=== PATIENT | male | born 1940 | race Caucasian/White ===

== ENCOUNTER 2017-07-03 20:04 | Emergency (ER) | payer MEDICARE, OTHER ==
--- NOTE | 2017-07-04 14:41 | ER ---
DATE SEEN: 07/03/2017 HISTORY OF PRESENT ILLNESS: On 07/04/2017, a telephone call was placed to the patient to determine how he is doing. He is feeling well. He noted that after he got home, he had more left knee discomfort. He has mild swelling. He did not comment that "I didn't know I had knee discomfort when I was in the hospital, it wasn't bothering me in the hospital." I encouraged him to have this followed this week and may need x-ray. The patient has elevated INR. He left before he was informed of his results. He was informed of that this morning. The plan is to have him hold his warfarin dose at least for 24 hours and followup. He is going to get his INR rechecked tomorrow. This will be modulated and followed by the clinic. I also said that because his INR is elevated, he has increased risk of swelling and bleed into his joint and/or joint surfaces or soft tissues, so this will need to be followed. They can use cold packs on his knee to diminish the swelling if he has extensive swelling. He states that he has mild swelling, it is not extensive, and it is not black and blue. /[id number] SAM/GIOVANNA
--- NOTE | 2017-07-05 09:39 | ER ---
DATE SEEN: 07/03/2017 EKG REPORT: Atrial fibrillation, heart rate 61 with intermittent atrial flutter. /[id number] SAM/GIOVANNA
--- NOTE | 2017-07-05 14:43 | ER ---
DATE SEEN: 07/03/2017 TIME SEEN: The patient was seen at 2008 hours. 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 Today, the family became concerned because he was ataxic. He had 2 beers at 1800 hours with a family celebration at home. He does not drink very often. Two hours post ingestion of the alcohol, he was not his usual self, had more slurred speech, not as alert as usual, and they were concerned about potential stroke as he had perseveration of speech with "saying things over and over." He did not know what his son was doing who was farming and they found that strange. He is usually "very on top of things." With walking today and he had a fall forward and struck his right superior brow. Family notes, he apparently is walking with more ataxic gait, did not use a cane or walker and he is, otherwise, alert and oriented. PAST MEDICAL HISTORY: He had bladder cancer 10 years ago. Two years ago thought to have a left CVA, had documentation on MRI of small lacunar infarct, cerebellum, bilateral. Also ischemic small-vessel disease noted on the CAT scan and MRI. He had a carotid ultrasound in 2016 which demonstrated mild stenosis of the carotids. No focal plaque was demonstrated. MEDICATIONS: None listed. ALLERGIES: None. SOCIAL HISTORY: Social status, he is a retired lopez. History of hypertension, not treated currently. Also and he is attended by very close family presently. REVIEW OF SYSTEMS: HEENT: Denies headache, compromise of vision. He has difficulty with speech, dysarthria. Although, family notes he has slurred speech. He has no cataracts. Hearing is decreased. CARDIORESPIRATORY: Denies chest pain, regular heartbeat, syncope, near syncope. GI: Denies abdominal discomfort, constipation, blood in the stool, black tarry stools, GERD. He is mildly obese (245 pounds). MUSCULOSKELETAL: Mild arthritis. : Negative regarding voiding difficulty. NEUROLOGIC: As noted above. PHYSICAL EXAMINATION: VITAL SIGNS: Blood pressure 116/51, heart rate 60, regular respirations 16, oxygen saturation is 97% on room air, temperature 36.6 degrees centigrade, 111.13 kg. Repeat blood pressures were 130/91, 127/86, heart rate is 75, respirations the same, oxygen saturation is the same. GENERAL: Very pleasant, happy, joking, and inclined to tease and also minimize his symptoms. Overweight man attended by three children and his . HEENT: PERRLA intact. Eye grounds show no AV nicking or hemorrhage. Hearing is decreased. Pharynx is without abnormality. Uvula midline. Gag intact. NECK: No bruits. No cervical adenopathy, thyromegaly, or masses in neck. HEART: S2 souinds slightly louder than S1. LUNGS: Clear to auscultation without rales, rhonchi, or wheezes. ABDOMEN: Soft. No guarding. No abdominal discomfort. Chest wall nontender to palpation. Increased abdominal girth. No overhang of the abdominal obesity. LOWER EXTREMITIES: Without abnormality. No edema noted. No linear vascular vein abnormalities. No dorsalis pedis and ulnar radial pulses are intact. MUSCULOSKELETAL: He has lopez's hands with moderate heavy and large hands. NEUROLOGIC: Deep tendon reflexes hypoactive, but present in upper and lower extremities. No asymmetry. Cranial nerves 2 through 12 intact. Hearing decreased. The patient is alert. Speech is appropriate, no slurring noted. Gait, mild ataxia. Mild hesitation with walking. Muscle strength intact in upper and lower extremities. CT was performed without abnormality except for small vessel disease. LABORATORY FINDINGS: White count 7600, PMNs 53, lymphocytes 35, monos 9, RDW slightly elevated at 17.2, hemoglobin 13.1, platelets 179,000. INR 4.51. CMP, electrolytes normal, creatinine and BUN normal, and GFR is 59, slightly low, but very good for his age. Calculated calcium is normal, but repeat metabolic panel was 8.5, albumin is 3.1. He is on anticoagulants with INR 4.54, which is elevated. Troponin is less than 0.017, albumin is 3.1, calculated calcium 9.22. Ethanol alcohol 0.09. ASSESSMENT: 1. 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 It has affected his gait. 2. He is status post previous cerebellar lacunar infarcts, documented in 2016 as a baseline, so the alcohol accentuated his potential for ataxia. 3. History of bladder cancer. 4. Elevated INR. We will discuss with the patient regarding how to manage this. 5. He is on anticoagulants for atrial fibrillation with heart rate in the 60s and also is over anticoagulated so needs to hold tomorrow's dose. 6. Diabetes. The patient status be followed in a week, earlier if worse. 7. At present, it is assumed that the ataxia is magnified by his alcohol intoxication of 0.09 mg%. The patient is dismissed to follow up with his family doctor and is to keep his appointment in 2 days.He will not be driving until cleared. /[id number] SAM/GIOVANNA MORALES
== END 2017-07-03 23:55 | disposition home or self-care (01) ==
LOC: FB.ED 20:04
DX: R27.0 Ataxia, unspecified (principal); I48.91 Unspecified atrial fibrillation; E11.9 Type 2 diabetes mellitus without complications; R79.89 Other specified abnormal findings of blood chemistry; Z85.51 Personal history of malignant neoplasm of bladder; Z86.73 Personal history of transient ischemic attack (TIA), and cerebral infarction without residual deficits
CPT/HCPCS: 36415; 70450; 72125; 80053; 84484; 85025; 85610; 93005; 99285; G0480

== ENCOUNTER 2019-12-27 17:36 | Emergency (ER) | payer MEDICARE, OTHER ==
--- NOTE | 2019-12-27 18:02 | EDM.PDOC ---
ED HPI GENERAL MEDICAL PROBLEM - General Chief Complaint: Fever Stated Complaint: DIZZINESS,FEVER Time Seen by Provider: 12/27/19 17:40 Source of Information: Reports: Patient History Limitations: Reports: No Limitations - History of Present Illness INITIAL COMMENTS - FREE TEXT/NARRATIVE: Patient presented to the ED because of fever and dizziness. There is cough that is non-productive, no sore throat. He just want to be tested for Covid and influenza. - Related Data Allergies Allergy/AdvReac Type Severity Reaction Status Date / Time No Known Allergies Allergy Verified 07/03/17 23:58 Home Meds: Home Meds . [Unable to Verify Home Med List] 12/27/19 [History] Past Medical History Cardiovascular History: Reports: High Cholesterol, Hypertension Genitourinary History: Reports: Other (See Below) Other Genitourinary History: kidney stones; hx of bladder cancer. Musculoskeletal History: Reports: Gout Neurological History: Reports: CVA Other Neuro History: CVA 3 years ago. Endocrine/Metabolic History: Reports: Diabetes, Type II Oncologic (Cancer) History: Reports: Bladder - Past Surgical History Other Male Surgeries/Procedures: removal of kidney stones, surgery from bladder cancer. Social & Family History - Family History Family Medical History: Noncontributory - Caffeine Use Caffeine Use: Reports: Coffee, Soda, Tea ED ROS GENERAL - Review of Systems Review Of Systems: See Below Constitutional: Reports: No Symptoms HEENT: Reports: No Symptoms Respiratory: Reports: Cough Cardiovascular: Reports: No Symptoms Endocrine: Reports: No Symptoms GI/Abdominal: Reports: No Symptoms : Reports: No Symptoms Musculoskeletal: Reports: No Symptoms Skin: Reports: No Symptoms Neurological: Reports: No Symptoms Psychiatric: Reports: No Symptoms Immunologic: Reports: No Symptoms ED EXAM, GENERAL - Physical Exam Exam: See Below Exam Limited By: No Limitations General Appearance: Alert, No Apparent Distress Eye Exam: Bilateral Eye: PERRL Ears: Normal External Exam, Normal Canal Nose: Normal Inspection, Normal Mucosa Throat/Mouth: Normal Inspection, Normal Lips, Normal Teeth Head: Atraumatic, Normocephalic Neck: Normal Inspection, Supple Respiratory/Chest: No Respiratory Distress, Lungs Clear, Normal Breath Sounds Cardiovascular: Normal Peripheral Pulses, Regular Rate, Rhythm, No Edema GI/Abdominal: Normal Bowel Sounds, Soft, Non-Tender, No Organomegaly Back Exam: Normal Inspection, Full Range of Motion Course - Vital Signs Text/Narrative:: Covid 19 and influenza-negative Last Recorded V/S: Last Vital Signs Temp 37.3 C 12/27/19 17:36 Pulse 83 12/27/19 17:36 Resp 17 12/27/19 17:36 BP 143/86 H 12/27/19 17:36 Pulse Ox 97 12/27/19 17:36 - Orders/Labs/Meds Orders: Active Orders 24 hr Category Date Time Status Isolation [COMM] Routine Oth 12/27/19 17:59 Ordered Labs: Laboratory Tests 12/27/19 Range/Units 18:15 SARS-CoV-2 RNA ([facility]) Negative (NEGATIVE) Departure - Departure Time of Disposition: 18:30 Disposition: Home, Self-Care 01 Condition: Good Clinical Impression: Viral illness - Discharge Information Instructions: Viral Respiratory Infection, [id number] Referrals: Demi Chung, [facility] [Primary Care Provider] - Forms: ED Department Discharge Additional Instructions: Please read discharge instructions on viral illness Increase oral fluids Take tylenol 500 mg every 4-6 hours as needed for pain/fever We will call you when we get the result of your covid and influenza - My Orders Last 24 Hours: My Active Orders 12/27/19 17:59 Isolation [COMM] Routine - Assessment/Plan Last 24 Hours: My Active Orders 12/27/19 17:59 Isolation [COMM] Routine
== END 2019-12-27 18:28 | disposition home or self-care (01) ==
LOC: FB.ED 17:36
DX: B34.9 Viral infection, unspecified (principal); E11.9 Type 2 diabetes mellitus without complications; Z20.828 Contact with and (suspected) exposure to other viral communicable diseases; I10 Essential (primary) hypertension; Z86.73 Personal history of transient ischemic attack (TIA), and cerebral infarction without residual deficits
CPT/HCPCS: 87804; 99284; U0002